=== PATIENT | female | born 1995 | race African-American/Black ===

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

== ENCOUNTER 2018-01-10 11:35 | Emergency (ER) | payer OTHER ==
[2018-01-10] MEDS ORDERED: Ibuprofen TAB* 600 MG PO ONE (12:27)
--- NOTE | 2018-01-10 12:38 | ED ---
Nieves Dennison Julia, scribed for Marcia Persaud MD on 01/10/18 at 1200 . Influenza-Like Illness - HPI Summary HPI Summary: This patient is a 22 year old F presenting to [facility] with a chief complaint of non-radiating mid sternal CP described as pressure since yesterday. Patient reports non-productive, cough starting before chest discomfort. worse with movement, palpation and deep breath. No SOB. Pt aslo reports a "very sore throat" since this morning. Patient denies chills, fever, rashes, sinus pain, ear pain, and SOB. + PND. The patient rates the pain 4/10 in severity. Chest pain aggravated by deep breaths and cough. Patient has not taken any OTC medication. Patient tried to eat cereal and tea this morning, but it bothered her throat. No analgesia taken. Patient reports cigarette and marijuana smoking , but has not smoked either in 3 days. Her LNMP was one week ago. Pt denies possibility of . Patient denies regular prescribed medication use. - History of Current Complaint Chief Complaint: EDUpperRespComplaint Time Seen by Provider: 01/10/18 11:41 Hx Obtained From: Patient Onset/Duration: Lasting Days, Worse Since - this morning Severity: Mild Associated Signs & Symptoms: Cough, Sore Throat Related Hx: Smoking - Allergy/Home Medications Allergies/Adverse Reactions: Allergies Allergy/AdvReac Type Severity Reaction Status Date / Time No Known Allergies Allergy Verified 01/10/18 11:38 PMH/Surg Hx/FS Hx/Imm Hx Previously Healthy: Yes Endocrine/Hematology History: Denies: Hx Anticoagulant Therapy, Hx Blood Disorders, Hx Diabetes, Hx Anemia Cardiovascular History: Denies: Hx Hypertension Respiratory History: Reports: Hx Asthma EENT History: Denies: Hx Deafness - Cancer History Hx Chemotherapy: No Hx Radiation Therapy: No Infectious Disease History: No Infectious Disease History: Denies: Hx of Known/Suspected MRSA, Traveled Outside the [place] in Last 30 Days - Family History Known Family History: Positive: Diabetes Negative: Cardiac Disease - Social History Occupation: Unemployed Lives: With Family - sister Alcohol Use: Occasionally Hx Substance Use: Yes Substance Use Type: Reports: Marijuana Hx Tobacco Use: Yes Smoking Status (MU): Current Every Day Smoker Review of Systems Negative: Fever, Chills ENT: Negative - sinus pain and ear pain Positive: Sore Throat. Negative: Ear Ache Positive: Chest Pain Positive: Cough, Other - congestion. Negative: Shortness Of Breath Negative: Rash All Other Systems Reviewed And Are Negative: Yes Physical Exam Triage Information Reviewed: Yes Vital Signs On Initial Exam: Initial Vitals Temp Pulse Resp BP Pulse Ox 98.3 F 89 16 145/93 100 01/10/18 11:39 01/10/18 11:39 01/10/18 11:39 01/10/18 11:39 01/10/18 11:39 Vital Signs Reviewed: Yes Appearance: Positive: Well-Appearing, No Pain Distress, Well-Nourished Skin: Positive: Warm, Skin Color Reflects Adequate Perfusion, Dry Head/Face: Positive: Normal Head/Face Inspection Eyes: Positive: Normal, EOMI, GISSELLE ENT: Positive: Hearing grossly normal, Pharynx normal, Pharyngeal erythema, Nasal congestion, Uvula midline, Other - + PND. Negative: Dental tenderness, Sinus tenderness Neck: Positive: Supple, Nontender, No Lymphadenopathy Respiratory/Lung Sounds: Positive: Clear to Auscultation, Breath Sounds Present , Decreased Breath Sounds Cardiovascular: Positive: Normal, RRR, Pulses are Symmetrical in both Upper and Lower Extremities, Other - + chest wall pain + increased discomfort with direct palpation and movement Abdomen Description: Positive: Nontender, No Organomegaly, Soft Musculoskeletal: Positive: Normal Neurological: Positive: Normal, Sensory/Motor Intact, Alert, Oriented to Person Place, Time Psychiatric: Positive: Normal AVPU Assessment: Alert - Keith Coma Scale Best Eye Response: 4 - Spontaneous Best Motor Response: 6 - Obeys Commands Best Verbal Response: 5 - Oriented Coma Scale Total: 15 Diagnostics - Vital Signs Vital Signs Temp Pulse Resp BP Pulse Ox 01/10/18 11:39 98.3 F 89 16 145/93 100 - Laboratory Lab Statement: Any lab studies that have been ordered have been reviewed, and results considered in the medical decision making process. - Radiology CXR Radiology Interpretation Completed By: Radiologist - No active cardiopulmonary disease is noted. ED Physician has reviewed this report. Flu Symptom Course/Dx - Course Assessment/Plan: Pt with anterior chest wall pain, non productive cough adn sore throat. Pt well appearing with erythema to throat - no exudate + PND. reproducible chest pain. Will check CXR, strep, flu. analgesia. reassess. if neg w/u - tx as URI an flonase. d/w pt and sister secretion precaution, hydration, motrin/apap. agreement with plan - Diagnoses Provider Diagnoses: Pharyngitis, URI (upper respiratory infection) Discharge - Sign-Out/Discharge Documenting (check all that apply): Discharge - Discharge Plan Condition: Stable Disposition: HOME Prescriptions: Fluticasone NASAL SPRAY 50MCG* [Flonase NASAL SPRAY 50MCG*] 2 spray BOTH NARES DAILY #1 btl Patient Education Materials: Pharyngitis (ED), Upper Respiratory Infection (ED) Forms: *Gen. Provider Communication Referrals: [facility] PHYSICIAN REFERRAL [Outside] No Primary Care Phys,NOPCP [Primary Care Provider] - Additional Instructions: - stay well hydrated. Drink plenty of non-alcoholic, non-caffinated beverages - Okay to alternate ibuprofen (advil, motrin) and tylenol every 3hours for pain. Take with food - gargle and spit with warm, salt water - cold foods may be soothing to your throat - popsiscles, ice, apple sauce, jello - use nasal spray as prescribed - These infections are spread by secretions - do NOT share eating or drinking utensils - clean items you share with other people such as cell phones, computer mouse, TV remote, computer tablets, etc. Once you start to feel better , change your toothbrush and your pillowcase - Contact the physician referral center to schedule a follow-up appointment - Billing Disposition and Condition Condition: STABLE Disposition: HOME The documentation as recorded by the Nieves matos Julia accurately reflects the service I personally performed and the decisions made by me, Marcia Persaud MD.
--- NOTE | 2018-01-10 12:47 | RAD ---
Indication: Cough, congestion. 2 views of the chest including dual energy PA views are reviewed and compared to previous exam dated April 18, 2016. No mediastinal shift is noted. Heart is of normal size and configuration. Lung blake are clear. IMPRESSION: No active cardiopulmonary disease is noted.
[2018-01-10 13:35] VITALS: BP 129/84
== END 2018-01-10 13:34 | disposition home or self-care (01) ==
LOC: ED 11:35
DX: J02.9 Acute pharyngitis, unspecified (principal); J06.9 Acute upper respiratory infection, unspecified; R05 Cough; F17.210 Nicotine dependence, cigarettes, uncomplicated
CPT/HCPCS: 71046; 87502; 87651; 99282; A9270-GY

== ENCOUNTER 2018-09-30 14:50 | Emergency (ER) | payer OTHER ==
[2018-09-30 14:59] VITALS: BP 123/85
--- NOTE | 2018-09-30 15:20 | ED ---
GI/ HPI - HPI Summary HPI Summary: This patient is a 23 year old F resenting to [facility] with a chief complaint of nausea after taking vitamins. She states she took it at 0700 this morning without food and developed epigastric pain immediately after, that has resolved since. The patient rates the pain 0/10 in severity. Patient denies d/v , fever, blood in the stool, and ABD cramping. She is not but is trying. - History of Current Complaint Chief Complaint: EDGeneral Stated Complaint: ABD PAIN, Hx Obtained From: Patient Onset/Duration: Started Days Ago, Resolved Timing: Intermittent Severity: Moderate Current Severity: Mild Pain Intensity: 0 Location of Pain: Epigastric Associated Signs and Symptoms: Positive: Negative - v/d - Allergy/Home Medications Allergies/Adverse Reactions: Allergies Allergy/AdvReac Type Severity Reaction Status Date / Time No Known Allergies Allergy Verified 01/10/18 11:38 PMH/Surg Hx/FS Hx/Imm Hx Endocrine/Hematology History: Denies: Hx Anticoagulant Therapy, Hx Blood Disorders, Hx Diabetes, Hx Anemia Cardiovascular History: Denies: Hx Hypertension Respiratory History: Reports: Hx Asthma Sensory History: Denies: Hx Deafness Psychiatric History: Denies: Hx Panic Disorder - Cancer History Hx Chemotherapy: No Hx Radiation Therapy: No Infectious Disease History: No Infectious Disease History: Denies: Hx of Known/Suspected MRSA, Traveled Outside the [place] in Last 30 Days - Family History Known Family History: Positive: Diabetes Negative: Cardiac Disease - Social History Alcohol Use: Occasionally Hx Substance Use: Yes Substance Use Type: Reports: Marijuana Substance Use Comment - Amount & Last Used: occasionally Hx Tobacco Use: Yes Smoking Status (MU): Current Every Day Smoker Review of Systems Negative: Fever Gastrointestinal: Negative - blood in the stool Positive: Abdominal Pain, Nausea. Negative: Vomiting, Diarrhea All Other Systems Reviewed And Are Negative: Yes Physical Exam - Summary Physical Exam Summary: Appearance: Well appearing, no pain distress Skin: warm, dry, reflects adequate perfusion Head/face: normal Eyes: EOMI, GISSELLE ENT: mucous membranes moist Neck: supple, non-tender Respiratory: CTA, breath sounds present Cardiovascular: RRR, pulses symmetrical Abdomen: non-tender, soft Bowel Sounds: present Musculoskeletal: normal, strength/ROM intact Neuro: normal, sensory motor intact, A&Ox3 Triage Information Reviewed: Yes Vital Signs On Initial Exam: Initial Vitals Temp Pulse Resp BP Pulse Ox 97.2 F 83 18 123/85 100 09/30/18 14:55 09/30/18 14:55 09/30/18 14:55 09/30/18 14:55 09/30/18 14:55 Vital Signs Reviewed: Yes Diagnostics - Vital Signs Vital Signs Temp Pulse Resp BP Pulse Ox 09/30/18 14:55 97.2 F 83 18 123/85 100 - Laboratory Lab Statement: Any lab studies that have been ordered have been reviewed, and results considered in the medical decision making process. GIGU Course/Dx - Course Course Of Treatment: Patient with some GI upset after taking vitamin. No discomfort at present. Prescribed Gummi's as well as Pepcid. Patient is not . - Diagnoses Differential Diagnoses - Female: Gastritis, Gerd Provider Diagnoses: Dyspepsia Discharge - Sign-Out/Discharge Documenting (check all that apply): Patient Departure - Discharge Plan Condition: Improved Disposition: HOME Prescriptions: Famotidine TAB* [Pepcid 20 MG TAB*] 20 mg PO BID PRN #20 tab PRN Reason: stomach upset Pnv No.103/Folic/Om3s/Fish Oil [ Gummies] 1 each PO DAILY #30 tab.chew Patient Education Materials: Indigestion (ED) Referrals: [facility] [Outside] [facility] [place] [facility]IAN REFERRAL [Outside] Additional Instructions: Maalox may help. Discontinue the tablets in favor of the gummy sigh prescribed. Call for follow-up with a primary care physician, a referral has been given to you. Return if worse, new symptoms or other concerns. Cut back on smoking. - Billing Disposition and Condition Condition: IMPROVED Disposition: Home - Attestation Statements Document Initiated by Mike: Yes Documenting Scribe: Kee Zhu Provider For Whom Mike is Documenting (Include Credential): Delgado Yanez MD Scribe Attestation: Kee Dennison scribed for Delgado Yanez MD on 09/30/18 at 1955. Scribe Documentation Reviewed: Yes Provider Attestation: The documentation as recorded by the Kee matos accurately reflects the service I personally performed and the decisions made by me, Delgado Yanez MD Status of Scribe Document: Viewed
== END 2018-09-30 15:43 | disposition home or self-care (01) ==
LOC: ED 14:50
DX: R10.13 Epigastric pain (principal); F17.200 Nicotine dependence, unspecified, uncomplicated; J45.909 Unspecified asthma, uncomplicated
CPT/HCPCS: 99282

== ENCOUNTER 2018-10-28 21:50 | Emergency (ER) | payer OTHER ==
[2018-10-28] MEDS ORDERED: Nicotine Inhaler* 10 MG AMP INH PRN (21:51)
[2018-10-28] MEDS ORDERED: Ziprasidone IM INJ* 20 MG/ML VIAL IM ONE (21:52)
[2018-10-28] MEDS ORDERED: Ziprasidone IM INJ* 20 MG/ML VIAL ONE (21:52)
[2018-10-28] MEDS ORDERED: NS 0.9% 1000 ML* 1,000 ML IV ONE (21:53)
[2018-10-28] MEDS ORDERED: LORazepam INJ* 2 MG/ML 1 ML VIAL ONE (21:53)
[2018-10-28] MEDS ORDERED: LORazepam INJ* 2 MG/ML 1 ML VIAL IM ONE (21:53)
--- NOTE | 2018-10-28 21:55 | ED ---
Psychiatric Complaint - HPI Summary HPI Summary: This patient is a 23 year old F brought in by EMS to [facility] with her boyfriend after a suicide attempt at 1999 tonight. The patient is accompanied by police and is combative. Her boyfriend states she has been drinking a significant amount tonight and at 2000 she took around 6 advil and 3 Tylenol in an attempt to commit suicide. EMS states she vomited up some of the pills in route. LEVEL 5 CAVEAT: Exam limited as the patient is combative. - History Of Current Complaint Time Seen by Provider: 10/28/18 21:51 Hx Obtained From: Patient, Family/Truck Switcher - boy friend Onset/Duration: Still Present Timing: Constant Severity Initially: Severe Severity Currently: Severe Character: Manic Aggravating Factor(s): Alcohol Use Has Suicidal: Reports: Thoughts, With A Plan, Demonstrates Gesture - Allergies/Home Medications Allergies/Adverse Reactions: Allergies Allergy/AdvReac Type Severity Reaction Status Date / Time No Known Allergies Allergy Verified 01/10/18 11:38 Home Medications: Home Medications NK [No Home Medications Reported] 10/28/18 [History Confirmed 10/28/18] PMH/Surg Hx/FS Hx/Imm Hx Endocrine/Hematology History: Denies: Hx Anticoagulant Therapy, Hx Blood Disorders, Hx Diabetes, Hx Anemia Cardiovascular History: Denies: Hx Hypertension Respiratory History: Reports: Hx Asthma GI History: Denies: Hx Diverticulosis Sensory History: Denies: Hx Deafness Psychiatric History: Reports: Hx Suicide Attempt Denies: Hx Panic Disorder - Cancer History Hx Chemotherapy: No Hx Radiation Therapy: No Infectious Disease History: Denies: Hx of Known/Suspected MRSA - Family History Known Family History: Positive: Diabetes Negative: Cardiac Disease - Social History Lives: With Family Alcohol Use: Occasionally Hx Substance Use: Yes Substance Use Type: Reports: Marijuana Substance Use Comment - Amount & Last Used: occasionally Hx Tobacco Use: Yes Smoking Status (MU): Current Every Day Smoker Review of Systems - ROS Summary Review of Systems Summary: LEVEL 5 CAVEAT: Exam limited as the patient is combative. Negative: Fever Positive: Other - SI All Other Systems Reviewed And Are Negative: No Physical Exam - Summary Physical Exam Summary: VITAL SIGNS: Reviewed. GENERAL: Patient is a well-developed and nourished female who is hand cuffed to the stretcher, The patient is agitated HEAD AND FACE: No signs of trauma. No ecchymosis, hematomas or skull depressions. EYES: PERRLA, EOMI x 2, EARS: Hearing grossly intact. MOUTH: Oropharynx within normal limits. NECK: Supple, trachea is midline, CHEST: Symmetric, ABDOMEN: No signs of distention. EXTREMITIES: FROM in all major joints, no edema, no cyanosis or clubbing. NEURO: Alert. No acute neurological deficits. She is not answering questions. SKIN: Dry and warm Triage Information Reviewed: Yes Vital Signs Reviewed: Yes Completion Of Physical Exam Limited Due To: Level 5 Diagnostics - Laboratory Result Diagrams: 10/28/18 22:23 10/29/18 02:16 Lab Statement: Any lab studies that have been ordered have been reviewed, and results considered in the medical decision making process. Re-Evaluation - Re-Evaluation First Eval Re-Evaluation Time: 21:57 Change: Unchanged Comment: Security is in the room attempting to restrain the patient. She will be medically sedated. Course/Dx - Course Assessment/Plan: This patient will be signed out to Dr. Hernandez awaiting E. - Differential Dx/Clinical Impression Provider Diagnosis: Alcohol intoxication Discharge - Sign-Out/Discharge Documenting (check all that apply): Sign-Out Patient Signing out patient TO: Oswaldo Hernandez - Discharge Plan Condition: Stable Referrals: No Primary Care Phys,NOPCP [Primary Care Provider] - - Billing Disposition and Condition Condition: STABLE - Attestation Statements Document Initiated by Mike: Yes Documenting Scribe: Kee Zhu Provider For Whom Lyndonibe is Documenting (Include Credential): Luciana Lanier MD Scribe Attestation: Kee Dennison, scribed for Luciana Lanier MD on 10/29/18 at 0647. Scribe Documentation Reviewed: Yes Provider Attestation: The documentation as recorded by the Kee matos accurately reflects the service I personally performed and the decisions made by Js morales MD Status of Scribe Document: Viewed
[2018-10-28 22:37] LABS: Hematocrit 38 % (35-47); Mean Corpuscular HGB Conc 32 g/dl (31-36); Mean Corpuscular Hemoglobin 23 pg (27-31); Mean Corpuscular Volume 74 fL (80-97); Mean Platelet Volume 9.6 fL (7.4-10.4); Platelet Count 181 10^3/ul (150-450); Red Blood Count 5.14 10^6/ul (4.00-5.40); Red Cell Distribution Width 14 % (10.5-15); White Blood Count 8.4 10^3/ul (3.5-10.8)
[2018-10-28 22:49] LABS: ALT 11 U/L (7-52); AST 19 U/L (13-39); Albumin 4.3 g/dL (3.2-5.2); Albumin/Globulin Ratio 1.6 (1-3); Alkaline Phosphatase 75 U/L (34-104); Anion Gap 12 mmol/L (2-11); BUN/Creatinine Ratio 18.2 (8-20); Blood Urea Nitrogen 14 mg/dL (6-24); CO2 Carbon Dioxide 22 mmol/L (22-32); Calcium 9.3 mg/dL (8.6-10.3); Chloride 106 mmol/L (101-111); Creatine Kinase 216 U/L (10-223); EGFR Non-African American 94.6 (>60); Globulin 2.7 g/dL (2-4); Glucose 112 mg/dL (70-100); Potassium 2.8 mmol/L (3.5-5.0); Sodium 140 mmol/L (135-145)
[2018-10-28 22:56] LABS: HCG Pregnancy < 0.60 mIU/mL
[2018-10-28 23:00] LABS: ABS Basophils 0.1 10^3/ul (0-0.2); ABS Eosinophils 0.1 10^3/ul (0-0.6); ABS Lymphocytes 2.3 10^3/ul (1.0-4.8); ABS Monocytes 0.4 10^3/ul (0-0.8); ABS Neutrophils 5.5 10^3/ul (1.5-7.7); ABS Nucleated RBC 0 10^3/ul; Lymphocyte % 27.5 %; Nucleated Red Blood Cells % 0.1
[2018-10-28] MEDS ORDERED: Magnesium Sulfate 2 GM IV* 2 GM/50 ML BAG IVPB ONE (23:00)
[2018-10-28 23:01] LABS: Microcytosis 1+
[2018-10-28 23:04] LABS: Acetaminophen < 15 mcg/mL; Alcohol 286 mg/dL (<10)
[2018-10-28 23:19] LABS: TSH (Thyroid Stimulating Horm) 1.39 mcIU/mL (0.34-5.60)
[2018-10-28] MEDS: KCL 10 MEQ/50 ML IVPREMIX* 10 MEQ/50 ML BAG IV SCH (23:56)
[2018-10-29] MEDS: KCL 10 MEQ/50 ML IVPREMIX* 10 MEQ/50 ML BAG IV SCH (00:47)
[2018-10-29 02:37] LABS: Potassium 3.8 mmol/L (3.5-5.0)
[2018-10-29 02:42] LABS: Acetaminophen < 15 mcg/mL
--- NOTE | 2018-10-29 07:07 | ED ---
Progress - Progress Note Progress Note: This patient was signed out from Dr. Lanier to Dr. Crisostomo upon shift change at 07:00 10/29/18 pending MHE. Per mental health technical manager chemical plant, Dr. Boyce has cleared the patient for discharge. Dx: Alcohol induced mood disorder. Re-Evaluation - Re-Evaluation First Eval Re-Evaluation Time: 21:57 Change: Unchanged Comment: Security is in the room attempting to restrain the patient. She will be medically sedated. Course/Dx - Course Course Of Treatment: This patient was signed out from Dr. Lanier to Dr. Crisostomo upon shift change at 07:00 10/29/18 pending MHE. Per mental health technical manager [employer] plant, Dr. Boyce has cleared the patient for discharge. Dx: Alcohol induced mood disorder. - Diagnoses Provider Diagnoses: Alcohol-induced mood disorder - Provider Notifications Discussed Care Of Patient With: Osvaldo Boyce Time Discussed With Above Provider: 09:00 Instructed by Provider To: Other - Per mental health technical manager [employer] plant, Dr. Boyce has cleared the patient for discharge. Dx: Alcohol induced mood disorder. Discharge - Sign-Out/Discharge Documenting (check all that apply): Patient Departure - DC - Discharge Plan Condition: Stable Disposition: HOME Referrals: [facility] [place] [facility]YS[facility]IAN REFERRAL [Outside] - Billing Disposition and Condition Condition: STABLE Disposition: Home - Attestation Statements Document Initiated by Mike: Yes Documenting Scribe: Musa Hernandez Provider For Whom Mike is Documenting (Include Credential): Delgado Crisostomo MD Scribe Attestation: IMusa scribed for Delgado Crisostomo MD on 10/29/18 at 1045. Scribe Documentation Reviewed: Yes Provider Attestation: The documentation as recorded by the Musa matos accurately reflects the service I personally performed and the decisions made by me, Delgado Crisostomo MD Status of Scribe Document: Viewed
[2018-10-29 09:26] VITALS: BP 122/80
== END 2018-10-29 09:26 | disposition home or self-care (01) ==
LOC: ED 21:50
DX: F10.94 Alcohol use, unspecified with alcohol-induced mood disorder (principal); F19.90 Other psychoactive substance use, unspecified, uncomplicated; F17.200 Nicotine dependence, unspecified, uncomplicated
CPT/HCPCS: 36415; 80053; 80320; 80329; 82550; 84132; 84443; 84702; 85025; 96361; 96365; 96372; 99285; G0480; J2060; J3475; J3480; J3486

== ENCOUNTER 2020-08-11 19:02 | Inpatient (IN) ==
[2020-08-11] MEDS ORDERED: Lactated Ringers 1000 ml BAG 1,000 ML IV ONE (19:30)
[2020-08-11] MEDS ORDERED: Penicillin G Potassium IV 5,000,000 UNITS in NS 0.9% 100 ml BAG 100 ML IVPB ONE (19:30)
[2020-08-11 19:57] LABS: ABS Basophils 0.1 10^3/ul (0-0.2); ABS Eosinophils 0.1 10^3/ul (0-0.6); ABS Lymphocytes 1.5 10^3/ul (1.0-4.8); ABS Neutrophils 11.1 10^3/ul (1.5-7.7); Eosinophil % 0.4 %; Hematocrit 34 % (35-47); Lymphocyte % 10.6 %; Mean Corpuscular HGB Conc 33 g/dL (31-36); Mean Corpuscular Hemoglobin 24 pg (27-31); Mean Corpuscular Volume 75 fL (80-97); Nucleated Red Blood Cells % 0.1; Platelet Count 148 10^3/uL (150-450); Red Blood Count 4.54 10^6 /uL (3.70-4.87); Red Cell Distribution Width 14 % (10-15); White Blood Count 13.7 10^3/uL (3.5-10.8)
[2020-08-11] MEDS ORDERED: Penicillin G Potassium IV 3,000,000 UNITS in NS 0.9% 100 ml BAG 100 ML IVPB SCH (20:00)
[2020-08-11] MEDS ORDERED: Oxytocin 10 UNITS/ML 1 ML VIAL IM ONE (21:46)
[2020-08-11] MEDS: Witch Hazel PAD JAR TOPICAL PRN (22:15)
[2020-08-11] MEDS: Dibucaine 1% OINT 28.35 GM TUBE PR PRN (22:15)
[2020-08-12] MEDS: Dibucaine 1% OINT 28.35 GM TUBE PR PRN (00:35)
[2020-08-12] MEDS: Witch Hazel PAD JAR TOPICAL PRN (00:35)
[2020-08-12 07:27] LABS: ABS Basophils 0.1 10^3/ul (0-0.2); ABS Eosinophils 0.2 10^3/ul (0-0.6); ABS Lymphocytes 1.7 10^3/ul (1.0-4.8); ABS Monocytes 1.2 10^3/ul (0-0.8); Eosinophil % 1.3 %; Hematocrit 31 % (35-47); Hemoglobin 10.1 g/dL (12.0-16.0); Lymphocyte % 11.2 %; Mean Corpuscular HGB Conc 32 g/dL (31-36); Mean Corpuscular Hemoglobin 24 pg (27-31); Mean Corpuscular Volume 75 fL (80-97); Platelet Count 137 10^3/uL (150-450); Red Blood Count 4.17 10^6 /uL (3.70-4.87); Red Cell Distribution Width 14 % (10-15); White Blood Count 15.2 10^3/uL (3.5-10.8)
[2020-08-12 19:40] VITALS: BP 126/87
== END 2020-08-13 10:24 | disposition home or self-care (01) | DRG 560 ==
LOC: MCHOBOUT 19:02 → MCHOB 19:47
PROVIDERS: ADMIT Midwife; ATTEND Midwife